=== PATIENT | female | born 1970 | race Caucasian/White ===

== ENCOUNTER 2025-08-02 22:25 | Emergency (ER) | payer OTHER, SELFPAY ==
--- NOTE | ~2025-08-02 | XR_ITS ---
Examination: XR chest 2V Clinical History: chest pain SOB Comparison: None Technique: PA and Lateral Findings: Cardiomediastinal silhouette normal size and configuration. Lungs clear. No acute bony abnormality. IMPRESSION: 1. No acute cardiopulmonary findings. Reviewed, dictated and finalized at location R. UCTION SKI REPAIRER
--- NOTE | ~2025-08-02 | CT_ITS ---
EXAMINATION: CT abdomen pelvis w con DATE: 08/03/2025 00:42 INDICATION: Abdominal pain. TECHNIQUE: Computed tomography (CT) of the abdomen and pelvis was performed with 100 mL Omnipaque 350 intravenous contrast. Automated exposure control and iterative reconstruction technique were employed. The dose-length product was 573.85 mGy-cm. COMPARISON: None. FINDINGS: The visualized portions of lung bases demonstrate mild atelectasis. No pleural effusion. The heart size is normal. No pericardial effusion. The liver, gallbladder, spleen, pancreas, adrenal glands, and left kidney are normal. There are cysts in right kidney measuring up to 13 mm. There is an intrauterine device in expected position. There is a 3.0 cm uterine fibroid. There are no dilated loops of bowel. The appendix is normal. There are no pathologically enlarged lymph nodes. There is no free intraperitoneal fluid. There is mild thoracic and lumbar spondylosis. IMPRESSION: 1. Uterine fibroid. Reviewed, dictated and finalized at location E. ACE AND WASH EQUIPMENT OPERATOR IMPRESSION: 1. Uterine fibroid.
--- NOTE | 2025-08-02 22:28 | ECG_ITS ---
Test Date: 2025-08-02 22:38:57 Measurements Intervals [place] Rate: 82 P: 60 NM: 136 QRS: 50 QRSD: 97 T: 56 QT: 377 QTc: 442 Interpretive Statements SINUS RHYTHM INCOMPLETE RIGHT BUNDLE BRANCH BLOCK BORDERLINE ECG No previous ECG available for comparison Electronically Signed On 08-03-2025 06:09:24 CONVERTIBLE SOFA BEDSPRING TESTER by Emeterio Almaraz D.O.
[2025-08-02 22:30] VITALS: BP 136/78; PULSE 91; RESP 18; TEMP 36.4; O2SAT 98
[2025-08-02 22:50] VITALS: O2SAT 99
[2025-08-02 22:51] VITALS: PULSE 80
[2025-08-02 22:55] LABS: Hematocrit 42.5 % (37.0-47.0); Hemoglobin 14.5 g/dL (12.0-15.0); Immature Granulocyte Percent A 0.5 % (0-0.5); Lymphocytes Absolute Auto 2.08 K/mm3 (0.9-3.2); Mean Corpuscular HGB Conc 34.1 g/dl (32-36); Mean Corpuscular Hemoglobin 31.9 pg (26-34); Mean Corpuscular Volume 93.6 fl (80-100); Nucleated Red Blood Cells Absolute Auto 0.000 K/mm3 (0.0-0.012); Nucleated Red Blood Cells Perc 0.0 % (0.0-0.2); Platelet Count Result 232 k/mm3 (150-375); Red Blood Count 4.54 M/mm3 (4.2-5.4); White Blood Count 6.1 K/mm3 (4.5-10.0)
[2025-08-02 23:06] LABS: INR 0.9; Prothrombin Time 12.3 Seconds (11.1-14.7)
[2025-08-02 23:07] LABS: Partial Thromboplastin Time 25.9 Seconds (22.3-36.8)
[2025-08-02 23:29] LABS: Alanine Aminotransferase 22 U/L (6-35); Albumin Level 4.3 g/dL (3.5-5.1); Alkaline Phosphatase 64 U/L (38-126); Anion Gap 6 mmol/L (4-12); Aspartate Amino Transferase 29 U/L (14-36); Bilirubin,Total 0.4 mg/dL (0.2-1.3); Blood Urea Nitrogen 19 mg/dL (7-17); Calcium 9.3 mg/dL (8.4-10.2); Carbon Dioxide 26 mmol/L (22-30); Chloride 105 mmol/L (98-107); Estimated CRCL calculation 75 ml/min; Estimated Glomerular Filt Rate > 60; Glucose 103 mg/dL (65-110); Lipase 128 U/L (23-300); Potassium 4.1 mmol/L (3.4-5.0); Sodium 137 mmol/L (137-145); Total Protein 6.9 g/dL (6.3-8.2)
--- NOTE | 2025-08-02 23:29 | ED_ITS ---
HPI - General Adult General Chief complaint: Chest Pain Stated complaint: chest pain, SOB Time Seen by Provider: 08/02/25 22:49 History of Present Illness HPI narrative: 55-year-old female presenting with concerns for new onset chest pain/epigastric pain and shortness of breath that started suddenly while she was trying go to sleep tonight. She states that it is in the center of her chest and it does not radiate anywhere. She is also reporting numbness/tingling in all extremities. Denies nausea/vomiting, fever/chills, urinary concerns, or upper respiratory symptoms. Reports no cardiac history, no family cardiac history, and that she is not a smoker. Related Data Allergies Allergy/AdvReac Type Severity Reaction Status Date / Time No Known Allergies Allergy Verified 08/03/25 00:11 Review of Systems 2 Review of Systems: All systems reviewed & are unremarkable except as noted in HPI and below Exam 2 Narrative: GENERAL: No acute distress. HEAD: Normocephalic, atraumatic. EYES: PERRLA and EOMI. ENT: Nares clear, no rhinorrhea or epistaxis. Mucous membranes moist. Oropharynx without tonsillar hypertrophy exudate or other lesions. Bilateral TMs pearly guzmán non-bulging NECK: Supple. No adenopathy or masses. No carotid bruits or JVD CHEST: Clear to auscultation. No respiratory distress. No wheezes rales or rhonchi HEART: Regular rate and rhythm. No murmur heard. Normal peripheral pulses. ABDOMEN: Soft, nondistended, normal active bowel sounds. Mild epigastric TTP. EXTREMITIES: Normal range of motion. No edema. SKIN: Warm, dry, no rash. NEURO: No focal deficits. Alert and oriented x3. PSYCH: Normal mood and affect Course Vital Signs Vital signs: Vital Signs Temperature 97.6 F 08/02/25 22:30 Pulse Rate 91 08/02/25 22:30 Respiratory Rate 18 08/02/25 22:30 Blood Pressure 136/78 08/02/25 22:30 Pulse Oximetry 98 08/02/25 22:30 Oxygen Delivery Room Air 08/02/25 22:30 Temperature 97.6 F 08/02/25 22:30 Pulse Rate 80 08/02/25 22:51 Respiratory Rate 18 08/02/25 22:30 Blood Pressure 136/78 08/02/25 22:30 Pulse Oximetry 99 08/02/25 22:50 Oxygen Delivery Room Air 08/02/25 22:50 [facility] Narrative Medical decision making narrative: 55-year-old female presenting with concerns for new onset chest pain and shortness of breath that started suddenly while she was trying go to sleep tonight. She states that it is in the center of her chest and it does not radiate anywhere. She is also reporting numbness/tingling in all extremities. Denies nausea/vomiting, fever/chills, urinary concerns, or upper respiratory symptoms. Reports no cardiac history, no family cardiac history, and that she is not a smoker. Upon my initial assessment patient appears uncomfortable but nontoxic with stable vitals. Her pain is hard to pinpoint with her localizing it to the lower center of the chest vs. epigastric region. During my reassessment she began reporting the pain as more epigastric. Administered a GI cocktail and Bentyl with patient reporting improvement in her symptoms. Patient's EKGs and labs are without significant high risk changes. EKG w/o acute ischemic changes. Troponin negative. Cardiac risk factors reviewed. HEART score = 1. Patient is felt likely low risk for ACS and reasonable for further risk stratification testing as an outpatient. Pain was not sudden or maximal in onset without tearing or ripping quality. No other signs or symptoms to suggest aortic dissection. A low-risk Wells criteria is noted, d-dimer negative, PE is felt to be unlikely. No pneumonia seen on evaluation today. Patient is felt to be a reasonable candidate for continued evaluation as an outpatient. Given reasons to return. Differential Diagnosis Differential Diagnosis: Differential diagnostic considerations for chest pain include ACS, aortic dissection, pneumothorax, pulmonary embolus, aleida/pericarditis, angina, STEMI, esophageal abnormality, GI etiology, pneumonia, rib fracture, biliary colic, atypical/non-cardiac (MSK, etc). Lab Data [facility] Lab Attestation statement: I personally reviewed the patient's lab results. 08/02/25 22:46 08/02/25 23:14 Labs: Lab Results 08/02/25 08/02/25 08/03/25 Range/Units 22:46 23:14 01:42 WBC 6.1 (4.5-10.0) K/mm3 RBC 4.54 (4.2-5.4) M/mm3 Hgb 14.5 (12.0-15.0) g/dL Hct 42.5 (37.0-47.0) % MCV 93.6 (80-100) fl MCH 31.9 (26-34) pg MCHC 34.1 (32-36) g/dl RDW 12.9 (11.5-14.5) % Plt Count 232 (150-375) k/mm3 MPV 10.6 H (7.4-10.4) fl Immature Gran % (Auto) 0.5 (0-0.5) % Neut % (Auto) 52.8 (45.5-73.1) % Lymph % (Auto) 34.3 (18.3-44.2) % [place] % (Auto) 9.1 H (2.6-8.5) % Eos % (Auto) 2.8 (0-4.4) % Baso % (Auto) 0.5 (0.2-1.2) % Lymph # (Auto) 2.08 (0.9-3.2) K/mm3 [place] # (Auto) 0.6 (0.1-0.6) K/mm3 Eos # (Auto) 0.2 (0-0.3) K/mm3 Baso # (Auto) 0.0 (0.0-0.1) K/mm3 Abs Immat Gran (auto) 0.03 (0.00-0.031) K/mm3 Absolute Neuts (auto) 3.2 (1.3-6.7) K/mm3 Absolute Nucleated RBC 0.000 (0.0-0.012) K/mm3 Nucleated RBC % 0.0 (0.0-0.2) % PT 12.3 (11.1-14.7) Seconds INR 0.9 APTT 25.9 (22.3-36.8) Seconds D-Dimer < 0.27 (<0.48) ug/mL Sodium 137 (137-145) mmol/L Potassium 4.1 (3.4-5.0) mmol/L Chloride 105 (98-107) mmol/L Carbon Dioxide 26 (22-30) mmol/L Anion Gap 6 (4-12) mmol/L BUN 19 H (7-17) mg/dL Creatinine 0.72 (0.7-1.0) mg/dL Estim Creat Clear Calc 75 ml/min Estimated GFR > 60 (59 - ) Glucose 103 (65-110) mg/dL Calcium 9.3 (8.4-10.2) mg/dL Total Bilirubin 0.4 (0.2-1.3) mg/dL AST 29 (14-36) U/L ALT 22 (6-35) U/L Alkaline Phosphatase 64 (38-126) U/L Troponin I < 0.012 < 0.012 (0.000-0.034) ng/mL Total Protein 6.9 (6.3-8.2) g/dL Albumin 4.3 (3.5-5.1) g/dL Lipase 128 (23-300) U/L Discharge Plan Discharge Clinical Impression: Chest pain, Abdominal pain, Shortness of breath Patient Disposition: Home Condition: Stable Instructions: Acute Abdominal Pain (ED), Abdominal Pain (ED), Shortness of Breath (ED) Additional Instructions: Return to the emergency department if you experience fever, chest pain, shortness of breath, abdominal pain with nausea and vomiting, weakness, numbness/tingling, or any other symptoms that are concerning to you. Follow up with primary care doctor. Patient Language: Chadian Follow-up/Referrals: PHYSICIAN NOT ON STAFF,NONSTAFF [Primary Care Provider] Quality HEART score for chest pain patients History: slightly suspicious ECG: normal Age: > 45 and < 65 years Risk factors: no risk factors known Troponin: < or = to 1x normal limit Heart score: 1
[2025-08-02 23:41] LABS: Troponin I < 0.012 ng/mL (0.000-0.034)
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
--- OUTSIDE RECORDS SUMMARY | 2025-08-02 23:51 | XMS_ITS | Patient Health Record ---
Author Organization [facility] Address [address] [place] [address] Care Team Providers Care Meat Supervisor Name Role Phone Santoyo, Lindsay Primary Care Provider [phone] Reason For Referral No Information Medications Medication SIG (Take, Route, Frequency, Duration) Notes Start Date End Date Status Levonorgest-Eth Estrad 91-Day 0.15-0.03 MG 1 tablet Orally Once a day; Duration: 90 days 01/03/2017 Active Levothyroxine Sodium 125 MCG 1 tablet on an empty stomach in the morning Orally Once a day Active Vexa Active ZyrTEC Allergy 10 MG 1 tablet Orally Onc e a day Active Social History Tobacco Use: Social History Observation Description Date Details (start date - stop date) Former Smoker NA - NA Tobacco Use/Smoking Question Answer Notes Are you a former smoker Alcohol Screen Question Answer Notes Did you have a drink contain ing alcohol in the past year? Yes How often did you have a dri nk containing alcohol in the past year? 4 or more times a week (4 points) How many drinks did you have on a typical day when you were drinking in the past year? 1 or 2 drinks (0 point) Points 4 Interpretation Positive Section Notes: occuption: restaurant Problems Problem Type SNOMED Code ICD Code Onset Dates Problem Status W/U Status Risk Notes Problem Postablative hypothyroidism (316373427) Postablative hypothyroidism (E89.0) Active confirmed Problem Allergic rhinitis caused by pollen (56153580) Seasonal allergic rhinitis due to pollen (J30.1) Active confirmed Plan Of Treatment No Information Insurance Providers Payer Name Payer Address Payer Phone Subscriber Number Group Number Insured Name Patient Relationship to Insured Coverage Start Date Coverage End Date [place] P[place] [address] [place] [address] [phone] [id number] Jefferson Talley Spouse - patient is the spouse of the insured Medical (General) History Surgical History Surgery Date(Month/Year) thyroidectomy/thyroid cancer 10 years Hospitalization History Reason Date(Month/Year) see above child births x2
[2025-08-03] MEDS: DICYCLOMINE HCL 10 MG CAPSULE 20 MG PO (00:43)
[2025-08-03] MEDS: BELLADONNA ALK/PHENOB ELIX 10 ML, MAG HYDROX/ALUMINUM HYD/SIMETH 30 ML, LIDOCAINE 2% VI... PO (00:43)
--- NOTE | 2025-08-03 02:14 | ECG_ITS ---
Test Date: 2025-08-03 02:37:25 Measurements Intervals [place] Rate: 67 P: 70 CA: 134 QRS: 44 QRSD: 102 T: 52 QT: 408 QTc: 431 Interpretive Statements SINUS RHYTHM LOW QRS VOLTAGE IN PRECORDIAL LEADS INCOMPLETE RIGHT BUNDLE BRANCH BLOCK BORDERLINE ECG Compared to ECG 08/02/2025 22:38:57 NO SIGNIFICANT CHANGE Electronically Signed On 08-03-2025 06:08:58 LINER REROLL TENDER by Emeterio Almaraz D.O.
[2025-08-03 02:30] LABS: Troponin I < 0.012 ng/mL (0.000-0.034)
[2025-08-03 03:13] VITALS: BP 105/60; PULSE 75; RESP 18; TEMP 36.7; O2SAT 100
== END 2025-08-03 03:14 | disposition home or self-care (01) ==
PROVIDERS: Student in an Organized Health Care Education/Training Program
DX: R07.9 Chest pain, unspecified (principal); R06.02 Shortness of breath; R10.13 Epigastric pain
CPT/HCPCS: 36415; 71046; 74177; 80053; 83690; 84484; 85025; 85380; 85610; 85730; 93005; 99284; A9270; Q9967